=== PATIENT | female | born 1985 | race African-American/Black ===

== ENCOUNTER 2018-01-23 09:36 | Emergency (ER) | payer BC ==
[2018-01-23 09:51] VITALS: BP 130/91
--- NOTE | 2018-01-23 09:54 | EDM.PDOC ---
ED HPI GENERAL MEDICAL PROBLEM - General Chief Complaint: Chest Pain Stated Complaint: chest pain Time Seen by Provider: 01/23/18 09:53 Source of Information: Reports: Patient History Limitations: Reports: No Limitations - History of Present Illness INITIAL COMMENTS - FREE TEXT/NARRATIVE: 32-year-old female of -[place] descent presents to the ED with left- sided chest pain radiating up into her left shoulder down her arm for the last week. No known injuries or trauma. She states at times it hurts to breathe and she feels somewhat short of breath. She denies cough or sputum production. Denies fever or chills. She is right-hand dominant. She has been a type II diabetic 3 years. She developed gestational diabetes and currently is off medication because her glycosylated protein is so good. She is controlled therefore by diet only. At this time though she believes she may be .. Was last sometime in October of this year. Cycles usually were regular. She is 3 para 3 all 3 deliveries by . At this time is 2:15. Blood pressure is 1 4100. She is mildly anxious. She locally localizes the pain to the high left anterior chest adjacent to her shoulder. Onset: Gradual Onset Date: 01/17/18 Duration: Week(s): (Left chest pain for the better part of a week.) Location: Reports: Chest (Left upper anterior chest.) Quality: Reports: Ache, Pressure Severity: Moderate Improves with: Reports: None Worsens with: Reports: None Context: Reports: Other (Spontaneous occurrence.). Denies: Activity, Exercise, Lifting, Sick Contact, Trauma Associated Symptoms: Reports: Chest Pain, Malaise. 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 No miscarriages.) Endocrine/Metabolic History: Reports: Diabetes, Type II (Type II diabetic. Diagnosed with gestational diabetes with first . She's been on and off metformin for a period of time. Currently not on metformin. Diet controlled only since her glycosylated protein was so good.) - Past Surgical History Female Surgical History: Reports: Section (3.) Social & Family History - Living Situation & Occupation Living situation: Reports: Occupation: Employed (At [employer].) ED ROS GENERAL - Review of Systems Review Of Systems: See Below Constitutional: Reports: Malaise, Fatigue. Denies: Fever, Chills, Weakness, Decreased Appetite, Weight Loss HEENT: Reports: No Symptoms Respiratory: Reports: Shortness of Breath Cardiovascular: Reports: Chest Pain. Denies: Blood Pressure Problem (See history of present illness), Claudication, Dyspnea on Exertion, Edema, Lightheadedness, Orthopnea, Palpitations Endocrine: Reports: Fatigue GI/Abdominal: Reports: No Symptoms : Reports: Frequency, Other (Last normal menstrual period was sometime in October. She is concerned she may well be .) Musculoskeletal: Reports: Back Pain Skin: Reports: No Symptoms Neurological: Reports: No Symptoms Psychiatric: Reports: No Symptoms Hematologic/Lymphatic: Reports: No Symptoms ED EXAM, GENERAL - Physical Exam Exam: See Below Exam Limited By: No Limitations General Appearance: Alert, WD/WN, No Apparent Distress, Other (Vital signs are normal with BP 130/91. Respiratory rate 21. Pulse ox 99% on room air.) Eye Exam: Bilateral Eye: Normal Inspection Head: Atraumatic, Normocephalic Neck: Normal Inspection, Supple, Non-Tender, Full Range of Motion. No: Carotid Bruit, Lymphadenopathy (L), Lymphadenopathy (R), Thyromegaly Respiratory/Chest: No Respiratory Distress, Lungs Clear, Normal Breath Sounds, No Accessory Muscle Use, Other (Chest pain elicited on palpation of ribs 234 and 5. Query the fourth and fifth ribs at the anterior axillary line and mid clavicular line.) Cardiovascular: Normal Peripheral Pulses, Regular Rate, Rhythm, No Edema, No Gallop, No Murmur Peripheral Pulses: 3+: Posterior Tibial (L), Posterior Tibial (R), Dorsalis Pedis (L), Dorsalis Pedis (R) GI/Abdominal: Normal Bowel Sounds, Soft, Non-Tender, No Organomegaly, No Distention, No Abnormal Bruit, No Mass, Pelvis Stable Back Exam: Normal Inspection, Full Range of Motion. No: CVA Tenderness (L), CVA Tenderness (R) Extremities: Normal Inspection, Normal Range of Motion, No Pedal Edema, Other ( On inspection or palpation of the left upper extremity reveals pain throughout the supraspinatus tendon superior aspect of the shoulder. There also is quite marked tenderness on palpation of the short head of biceps at its insertion into the shoulder and coracoid process. Deltoid tendon insertion site appears normal. She has good distal pulses to her left wrist.) Neurological: Alert, Oriented, CN II-XII Intact, Normal Cognition Psychiatric: Normal Affect, Normal Mood Skin Exam: Warm, Dry, Intact, Normal Color, No Rash EKG INTERPRETATION EKG Date: 01/23/18 Time: 09:45 Rhythm: NSR Rate (Beats/Min): 72 (There are multifocal PVCs in a trigeminal pattern. Patient is not aware of irregular heartbeat.) [place]: Normal P-Wave: Present ST-T: Normal QT: Prolonged EKG Interpretation Comments: Abnormal ECG. Course - Vital Signs Last Recorded V/S: Last Vital Signs Temp 36.8 C 01/23/18 09:40 Pulse 75 01/23/18 09:40 Resp 21 H 01/23/18 09:40 BP 130/91 H 01/23/18 09:40 Pulse Ox 99 01/23/18 09:40 - Orders/Labs/Meds Orders: Active Orders 24 hr Category Date Time Status EKG 12 Lead [EKG Documentation Completion] [RC] STAT Care 01/23/18 09:35 Active URINALYSIS W/MICROSCOPIC [UA W/MICROSCOPIC] [URIN] Stat Lab 01/23/18 10:20 Ordered Labs: Laboratory Tests 01/23/18 01/23/18 01/23/18 Range/Units 09:45 09:45 09:45 WBC 8.00 (3.98-10.04) K/mm3 RBC 5.21 (3.98-5.22) M/mm3 Hgb 13.5 (11.2-15.7) gm/L Hct 39.6 (34.1-44.9) % MCV 76.0 L (79.4-94.8) fl MCH 25.9 (25.6-32.2) pg MCHC 34.1 (32.2-35.5) g/dl RDW Std Deviation 41.4 (36.4-46.3) fL Plt Count 193 (182-369) K/mm3 MPV 11.4 (9.4-12.3) fl Neutrophils % (Manual) 64 H (40-60) % Band Neutrophils % 1 (0-10) % Lymphocytes % (Manual) 28 (20-40) % Atypical Lymphs % 0 % Monocytes % (Manual) 5 (2-10) % Eosinophils % (Manual) 1 (0.7-5.8) % Basophils % (Manual) 1 (0.1-1.2) Platelet Estimate Adequate Hypochromasia 1+ slight Anisocytosis 1+ slight Microcytosis 1+ slight RBC Morph Comment Not Reportable Sodium 134 L (136-145) mEq/L Potassium 3.8 (3.5-5.1) mEq/L Chloride 101 (98-107) mEq/L Carbon Dioxide 22 (21-32) mEq/L Anion Gap 14.8 (5-15) BUN 8 (7-18) mg/dL Creatinine 0.7 (0.55-1.02) mg/dL Est Cr Clr Drug Dosing 91.25 mL/min Estimated GFR (MDRD) > 60 (>60) mL/min BUN/Creatinine Ratio 11.4 L (14-18) Glucose 219 H (74-106) mg/dL Hemoglobin A1c (4.50-6.20) % Calcium 9.1 (8.5-10.1) mg/dL Magnesium 1.4 L (1.8-2.4) mg/dl Total Bilirubin 0.3 (0.2-1.0) mg/dL AST 14 L (15-37) U/L ALT 20 (14-59) U/L Alkaline Phosphatase 45 L (46-116) U/L Troponin I (0.00-0.056) ng/mL NT-Pro-B Natriuret Pep 21 (0-125) pg/mL Total Protein 7.5 (6.4-8.2) g/dl Albumin 3.3 L (3.4-5.0) g/dl Globulin 4.2 gm/dL Albumin/Globulin Ratio 0.8 L (1-2) TSH 3rd Generation 1.208 (0.358-3.74) uIU/mL HCG, Qual Positive H (NEGATIVE) HCG, Quant mIU/mL Urine Color (Yellow) Urine Appearance (Clear) Urine pH (5.0-8.0) Ur Specific [place] (1.005-1.030) Urine Protein (Negative) Urine Glucose (UA) (Negative) Urine Ketones (Negative) Urine Occult Blood (Negative) Urine Nitrite (Negative) Urine Bilirubin (Negative) Urine Urobilinogen (0.2-1.0) Ur Leukocyte Esterase (Negative) Urine RBC (0-5) /hpf Urine WBC (0-5) /hpf Ur Epithelial Cells (0-5) /hpf Urine Bacteria (FEW) /hpf Urine Mucus (FEW) /hpf 01/23/18 01/23/18 01/23/18 Range/Units 09:45 09:45 09:45 WBC (3.98-10.04) K/mm3 RBC (3.98-5.22) M/mm3 Hgb (11.2-15.7) gm/L Hct (34.1-44.9) % MCV (79.4-94.8) fl MCH (25.6-32.2) pg MCHC (32.2-35.5) g/dl RDW Std Deviation (36.4-46.3) fL Plt Count (182-369) K/mm3 MPV (9.4-12.3) fl Neutrophils % (Manual) (40-60) % Band Neutrophils % (0-10) % Lymphocytes % (Manual) (20-40) % Atypical Lymphs % % Monocytes % (Manual) (2-10) % Eosinophils % (Manual) (0.7-5.8) % Basophils % (Manual) (0.1-1.2) Platelet Estimate Hypochromasia Anisocytosis Microcytosis RBC Morph Comment Sodium (136-145) mEq/L Potassium (3.5-5.1) mEq/L Chloride (98-107) mEq/L Carbon Dioxide (21-32) mEq/L Anion Gap (5-15) BUN (7-18) mg/dL Creatinine (0.55-1.02) mg/dL Est Cr Clr Drug Dosing mL/min Estimated GFR (MDRD) (>60) mL/min BUN/Creatinine Ratio (14-18) Glucose (74-106) mg/dL Hemoglobin A1c 7.90 H (4.50-6.20) % Calcium (8.5-10.1) mg/dL Magnesium (1.8-2.4) mg/dl Total Bilirubin (0.2-1.0) mg/dL AST (15-37) U/L ALT (14-59) U/L Alkaline Phosphatase (46-116) U/L Troponin I < 0.017 (0.00-0.056) ng/mL NT-Pro-B Natriuret Pep (0-125) pg/mL Total Protein (6.4-8.2) g/dl Albumin (3.4-5.0) g/dl Globulin gm/dL Albumin/Globulin Ratio (1-2) TSH 3rd Generation (0.358-3.74) uIU/mL HCG, Qual (NEGATIVE) HCG, Quant 133777.0 mIU/mL Urine Color (Yellow) Urine Appearance (Clear) Urine pH (5.0-8.0) Ur Specific [place] (1.005-1.030) Urine Protein (Negative) Urine Glucose (UA) (Negative) Urine Ketones (Negative) Urine Occult Blood (Negative) Urine Nitrite (Negative) Urine Bilirubin (Negative) Urine Urobilinogen (0.2-1.0) Ur Leukocyte Esterase (Negative) Urine RBC (0-5) /hpf Urine WBC (0-5) /hpf Ur Epithelial Cells (0-5) /hpf Urine Bacteria (FEW) /hpf Urine Mucus (FEW) /hpf 01/23/18 Range/Units 10:20 WBC (3.98-10.04) K/mm3 RBC (3.98-5.22) M/mm3 Hgb (11.2-15.7) gm/L Hct (34.1-44.9) % MCV (79.4-94.8) fl MCH (25.6-32.2) pg MCHC (32.2-35.5) g/dl RDW Std Deviation (36.4-46.3) fL Plt Count (182-369) K/mm3 MPV (9.4-12.3) fl Neutrophils % (Manual) (40-60) % Band Neutrophils % (0-10) % Lymphocytes % (Manual) (20-40) % Atypical Lymphs % % Monocytes % (Manual) (2-10) % Eosinophils % (Manual) (0.7-5.8) % Basophils % (Manual) (0.1-1.2) Platelet Estimate Hypochromasia Anisocytosis Microcytosis RBC Morph Comment Sodium (136-145) mEq/L Potassium (3.5-5.1) mEq/L Chloride (98-107) mEq/L Carbon Dioxide (21-32) mEq/L Anion Gap (5-15) BUN (7-18) mg/dL Creatinine (0.55-1.02) mg/dL Est Cr Clr Drug Dosing mL/min Estimated GFR (MDRD) (>60) mL/min BUN/Creatinine Ratio (14-18) Glucose (74-106) mg/dL Hemoglobin A1c (4.50-6.20) % Calcium (8.5-10.1) mg/dL Magnesium (1.8-2.4) mg/dl Total Bilirubin (0.2-1.0) mg/dL AST (15-37) U/L ALT (14-59) U/L Alkaline Phosphatase (46-116) U/L Troponin I (0.00-0.056) ng/mL NT-Pro-B Natriuret Pep (0-125) pg/mL Total Protein (6.4-8.2) g/dl Albumin (3.4-5.0) g/dl Globulin gm/dL Albumin/Globulin Ratio (1-2) TSH 3rd Generation (0.358-3.74) uIU/mL HCG, Qual (NEGATIVE) HCG, Quant mIU/mL Urine Color Light yellow (Yellow) Urine Appearance Clear (Clear) Urine pH 7.0 (5.0-8.0) Ur Specific [place] 1.015 (1.005-1.030) Urine Protein Negative (Negative) Urine Glucose (UA) 2+ H (Negative) Urine Ketones Negative (Negative) Urine Occult Blood 1+ H (Negative) Urine Nitrite Negative (Negative) Urine Bilirubin Negative (Negative) Urine Urobilinogen 0.2 (0.2-1.0) Ur Leukocyte Esterase Trace H (Negative) Urine RBC 0-5 (0-5) /hpf Urine WBC 0-5 (0-5) /hpf Ur Epithelial Cells 0-5 (0-5) /hpf Urine Bacteria Few (FEW) /hpf Urine Mucus Not seen (FEW) /hpf - Radiology Interpretation Free Text/Narrative:: 32-year-old female of [place] descent presents to the ED with left upper anterior shoulder and chest pain. Pain radiates down the anterior lateral aspect of her arm. It's been present for about a week. Associated dyspnea last night. States the pain kept her awake last evening. No associated fever chills nausea vomiting or cough. At this time she believes she may well be as well. Examination reveals normal lung [place] normal cardiac sounds. There is chest wall pain on palpation of the ribs left upper anterior chest to 3 and 4 and 5. This is worse in the left axillary anterior axillary line. So pain throughout the distribution of the supraspinatus tendon and also short head of biceps tendon anterior shoulder. Pain appears to be [place] skeletal in origin. Plan routine labs including a glycosylated protein to be done. This will include a serum magnesium and troponin and TSH. Will hold off on chest x-ray until we know for sure she is or not. - Re-Assessments/Exams Free Text/Narrative Re-Assessment/Exam: 01/23/18 10:52 Labs are starting to come back. White count is 8.0 differential pending. Hemoglobin is good at 13.5 with hematocrit of 39.6. Note MCV is low at 76.0 suggesting iron deficiency. Platelet count is normal 193,000. Sodium slightly low at 134. Potassium normal 3.8. Chloride 11 with a bicarbonate of 22. Anion gap is 14.8. BUN is 8 with a creatinine of 0.7. GFR is greater than 60. Glucose is currently 219. Hemoglobin A1c is 7.90. Calcium is 9.1. Magnesium is low at 1.4. Total bilirubin is 0.3. Remainder the liver function is normal. Troponin I is less than 0.017. BNP is normal at 21. TSH is normal at 1.20. 8 ECG serum is positive. Plan will be to order a serum quantitative beta-hCG. Urinalysis shows 2+ glucose 1+ occult blood. Trace leukocyte esterase but 0-5 [address] [facility]. 01/23/18 11:07 White blood cell differential 64% neutrophils 1 band cell reported. 01/23/18 12:50 Quantitative beta-hCG just returned elevated at 129,000/497. This would correlate with a late first trimester which would correlate with her dates. She's not certain of her last normal menstrual period date in October. She will follow-up in the next week to 10 days. Departure - Departure Time of Disposition: 12:20 Disposition: Home, Self-Care 01 Condition: Fair Clinical Impression: Non-cardiac chest pain, Chest wall pain, Bicipital tendinitis of left shoulder , First trimester Prescriptions: metFORMIN [Glucophage XR] 500 mg PO BIDMEALS #60 tab.er Instructions: Nonspecific Chest Pain, Pwur-ib-Carn Referrals: Annalise Mata MD [Primary Care Provider] - Forms: ED Department Discharge Additional Instructions: Evaluation the emergency room today in regards to left upper anterior chest pain. Clinically this appears to be chest wall pain. It is localized to particularly the third fourth and fifth ribs anterior axillary line and then significant pain at the insertion of the biceps tendon and pain along the supraspinatus muscle and tendon of the upper shoulder. Chest pain is chest wall in origin or musculoskeletal in origin. Treatment is hot packs to the area as needed. Tylenol for pain relief due to first trimester . She is confirmed in the ED. The exact dates of half hour long you are aren't not yet available. Glycosylated hemoglobin was 7.9. Markers for heart attack and other problems with the lungs were normal. You are mildly anemic and you should start a vitamin containing iron at this time. Suggest starting metformin 500 mg twice daily for diabetes control in . Encourage you to follow-up with [facility] physician within the next week to 10 days as you are higher risk due to having gestational diabetes. - My Orders Last 24 Hours: My Active Orders 01/23/18 09:35 EKG 12 Lead [EKG Documentation Completion] [RC] STAT 01/23/18 10:20 URINALYSIS W/MICROSCOPIC [UA W/MICROSCOPIC] [URIN] Stat - Assessment/Plan Last 24 Hours: My Active Orders 01/23/18 09:35 EKG 12 Lead [EKG Documentation Completion] [RC] STAT 01/23/18 10:20 URINALYSIS W/MICROSCOPIC [UA W/MICROSCOPIC] [URIN] Stat
== END 2018-01-23 12:21 | disposition home or self-care (01) ==
LOC: JD.ED 09:36
DX: O99.89 Other specified diseases and conditions complicating pregnancy, childbirth and the puerperium (principal); R07.89 Other chest pain; M75.22 Bicipital tendinitis, left shoulder; O24.311 Unspecified pre-existing diabetes mellitus in pregnancy, first trimester; E11.9 Type 2 diabetes mellitus without complications; Z79.84 Long term (current) use of oral hypoglycemic drugs
CPT/HCPCS: 36415; 80053; 81001; 82962; 83036; 83735; 83880; 84443; 84484; 84702; 84703; 85007; 85027; 93005; 99285-25

== ENCOUNTER 2018-07-25 05:36 | Inpatient (IN) | payer BC ==
[~2018-07-25 05:36] MED LIST: Oxytocin/Lactated Ringers 10 UNIT/1,000 ML BAG IV SCH; Sodium Chloride 0.9% 10 ML Syringe FLUSH PRN
[2018-07-25] MEDS ORDERED: Metoclopramide 10 MG/2 ML SDV IVPUSH ONE (06:00)
[2018-07-25] MEDS ORDERED: Citric Acid/Sodium Citrate Solution 30 ML Cup PO ONE (06:00)
[2018-07-25] MEDS ORDERED: ceFAZolin/Dextrose,Iso-Osmotic 2 GM/50 ML Duplex Bag IV ONE (06:22)
[2018-07-25] MEDS: Lactated Ringers 1,000 ML IV SCH ×2 (06:40→07:13)
[2018-07-25] MEDS ORDERED: ceFAZolin 2 GM in Premix Bag 1 BAG IV ONE (07:00)
--- NOTE | 2018-07-25 07:07 | PCM.OPNOTE ---
- General Post-Op/Procedure Note Date of Surgery/Procedure: 07/25/18 Operative Procedure(s): Repeat low transverse . Bilateral salpingectomy Findings: Moderate amount of scar tissue between the facia and the rectus. Moderate adhesive disease between the bladder and the lower uterine segment. Thin lower uterine segment. Gross evidence of polyhydramnios. Baby boy in vertex presentation with weight of 7 lbs 14 oz, APGARS of 6 & 8. Normal appearance of the uterus, fallopian tubes, and ovaries bilaterally. Pre Op Diagnosis: 38 3/7 wks gestation. Type 2 DM. Polyhydramnios. 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 Speed/safety of procedure. Pathology: Cord blood collected. Placenta discarded. Fluid Replacement, Intraop: 1,800 Output, Urine Amount: 75 EBL in mLs: 700 Complications: None Condition: Good Free Text/Narrative:: The risks, benefits, indications, potential complications, and alternatives were explained to the patient and informed consent obtained. After induction of anesthesia, the patient was placed in a supine position and then draped and prepped in the usual sterile manner. A Pfannenstiel incision was made and carried down through the subcutaneous tissue to the fascia. Fascial incision was made and extended transversely. The fascia was from the underlying rectus tissue superiorly and inferiorly. The peritoneum was identified and entered. Peritoneal incision was extended longitudinally. The utero-vesical peritoneal reflection was incised transversely and the bladder flap was bluntly freed from the lower uterine segment with care to take down adhesions. A low transverse uterine incision was made sharply with a scalpel and extended bluntly in a cephalocaudad direction. A baby boy was delivered from a vertex presentation with APGARS as above. After the umbilical cord was clamped and cut cord blood was obtained for evaluation. The placenta was removed intact and appeared normal. The uterus was exteriorized and cleared of clots. The uterine outline, tubes and ovaries appeared normal. The uterine incision was closed with running locked sutures of 0 Vicryl. Hemostasis was obtained with a second imbricating layer of 0 vicryl. Attention was then turned to performing a bilateral salpingectomy. The right fallopian tube was grasped with a [place] clamp and elevated. The LigaSure device was used to cauterize and transect the mesosalpinx from the fimbriated end of the tube towards the uterine cornua. The LigaSure was then used to cauterize and transect the tube. The same procedure was carried out on the patient's left. The uterus was then placed back into the abdomen. The infracolic gutters were cleared of blood clots. Sites of salpingectomy and hysterotomy were confirmed to be hemostatic. The fascia was then reapproximated with running sutures of 1 PDS. The sucutaneous tissue was irrigated with sterile warm normal saline, hemostasis obtained with cautery. This layer was closed with a running 0 vicryl suture. The skin was reapproximated with running Subcuticular 4-0 monocryl sutures. Instrument, sponge, and needle counts were correct prior the abdominal closure and at the conclusion of the case.
[2018-07-25] MEDS ORDERED: ceFAZolin 1 GM Vial ONE (07:14)
[2018-07-25] MEDS ORDERED: Morphine 10 MG/ML Syringe ONE (07:14)
[2018-07-25] MEDS ORDERED: Oxytocin 10 Units/1 ML SDV ONE (07:15)
[2018-07-25] MEDS ORDERED: Ondansetron 4 MG/2 ML SDV ONE (07:16)
[2018-07-25] MEDS ORDERED: Morphine PF 1 MG/ML Amp ONE (07:27)
--- NOTE | 2018-07-25 07:38 | PCM.PREANE ---
Preanesthetic Assessment - Procedure Proposed Procedure: Repeat C/S - Anesthesia/Transfusion/Family Hx Anesthesia History: Prior Anesthesia Without Reaction Family History of Anesthesia Reaction: No Transfusion History: No Prior Transfusion(s) Intubation History: Unknown - Review of Systems General: No Symptoms Pulmonary: No Symptoms Cardiovascular: No Symptoms Gastrointestinal: No Symptoms Neurological: No Symptoms Other: Reports: Diabetes - Physical Assessment NPO Status Date: 07/24/18 NPO Status Time: 21:00 Pulse: 92 O2 Sat by Pulse Oximetry: 99 Respiratory Rate: 18 Blood Pressure: 118/73 Temperature: 37.3 C Vital Signs: Last Vital Signs Temp 37.3 C 07/25/18 05:56 Pulse 92 07/25/18 05:56 Resp 18 07/25/18 05:56 BP 118/73 07/25/18 05:56 Pulse Ox 99 07/25/18 05:56 Height: 1.52 m Weight: 94.302 kg ASA Class: 2 Mental Status: Alert & Oriented x3 Airway Class: Mallampati = 3 Dentition: Reports: Normal Dentition ROM/Head Extension: Full Lungs: Clear to Auscultation, Normal Respiratory Effort Cardiovascular: Regular Rate, Regular Rhythm - Lab Values: Laboratory Last Values WBC 8.60 K/mm3 (3.98-10.04) 07/25/18 06:08 RBC 4.93 M/mm3 (3.98-5.22) 07/25/18 06:08 Hgb 12.3 gm/L (11.2-15.7) 07/25/18 06:08 Hct 37.7 % (34.1-44.9) 07/25/18 06:08 MCV 76.5 fl (79.4-94.8) L 07/25/18 06:08 MCH 24.9 pg (25.6-32.2) L 07/25/18 06:08 MCHC 32.6 g/dl (32.2-35.5) 07/25/18 06:08 RDW Std Deviation 44.1 fL (36.4-46.3) 07/25/18 06:08 Plt Count 172 K/mm3 (182-369) L 07/25/18 06:08 Neut % (Auto) 58.2 % (34.0-71.1) 07/25/18 06:08 Lymph % (Auto) 27.7 % (19.3-51.7) 07/25/18 06:08 [place] % (Auto) 9.9 % (4.7-12.5) 07/25/18 06:08 Eos % (Auto) 3.7 (0.7-5.8) 07/25/18 06:08 Baso % (Auto) 0.2 % (0.1-1.2) 07/25/18 06:08 Neut # (Auto) 5.00 K/mm3 (1.56-6.13) 07/25/18 06:08 Lymph # (Auto) 2.38 K/mm3 (1.18-3.74) 07/25/18 06:08 [place] # (Auto) 0.85 K/mm3 (0.24-0.36) H 07/25/18 06:08 Eos # (Auto) 0.32 K/mm3 (0.04-0.36) 07/25/18 06:08 Baso # (Auto) 0.02 K/mm3 (0.01-0.08) 07/25/18 06:08 POC Glucose 79 mg/dL (70-105) 07/25/18 06:12 Urine Color Yellow (Yellow) 07/25/18 05:55 Urine Appearance Clear (Clear) 07/25/18 05:55 Urine pH 6.5 (5.0-8.0) 07/25/18 05:55 Ur Specific [place] 1.015 (1.005-1.030) 07/25/18 05:55 Urine Protein Negative (Negative) 07/25/18 05:55 Urine Glucose (UA) Negative (Negative) 07/25/18 05:55 Urine Ketones Trace (Negative) H 07/25/18 05:55 Urine Occult Blood Negative (Negative) 07/25/18 05:55 Urine Nitrite Negative (Negative) 07/25/18 05:55 Urine Bilirubin Negative (Negative) 07/25/18 05:55 Urine Urobilinogen 0.2 (0.2-1.0) 07/25/18 05:55 Ur Leukocyte Esterase Negative (Negative) 07/25/18 05:55 Urine Opiates Screen Negative (NEGATIVE) 07/25/18 05:55 Ur Buprenorphine Scrn Negative (NEGATIVE) 07/25/18 05:55 Ur Oxycodone Screen Negative (NEGATIVE) 07/25/18 05:55 Urine Methadone Screen Negative (NEGATIVE) 07/25/18 05:55 Ur Propoxyphene Screen Negative (NEGATIVE) 07/25/18 05:55 Ur Barbiturates Screen Negative (NEGATIVE) 07/25/18 05:55 Ur Tricyclics Screen Negative (NEGATIVE) 07/25/18 05:55 Ur Phencyclidine Scrn Negative (NEGATIVE) 07/25/18 05:55 Ur Amphetamine Screen Negative (NEGATIVE) 07/25/18 05:55 U Methamphetamines Scrn Negative (NEGATIVE) 07/25/18 05:55 U Benzodiazepines Scrn Negative (NEGATIVE) 07/25/18 05:55 U Cocaine Metab Screen Negative (NEGATIVE) 07/25/18 05:55 U Marijuana (THC) Screen Negative (NEGATIVE) 07/25/18 05:55 Blood Type B POSITIVE 07/25/18 06:08 Gel Antibody Screen Negative 07/25/18 06:08 - Allergies Allergies/Adverse Reactions: Allergies Allergy/AdvReac Type Severity Reaction Status Date / Time No Known Allergies Allergy Verified 07/24/18 21:46 - Blood Blood Available: No - Anesthesia Plan Pre-Op Medication Ordered: None - Acknowledgements Anesthesia Type Planned: Spinal Pt an Appropriate Candidate for the Planned Anesthesia: Yes Alternatives and Risks of Anesthesia Discussed w Pt/Guardian: Yes Pt/Guardian Understands and Agrees with Anesthesia Plan: Yes PreAnesthesia Questionnaire - Past Health History Medical/Surgical History: Denies Medical/Surgical History 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: : 4 Para: 3 Musculoskeletal History: Reports: Back Pain, Chronic (with ) Endocrine/Metabolic History: Reports: Diabetes, Type II, Obesity/BMI 30+ - Past Surgical History Female Surgical History: Reports: Section - SUBSTANCE USE Smoking Status *Q: Never Smoker Recreational Drug Use History: No - HOME MEDS Home Medications: Home Meds Cyclobenzaprine [Flexeril] 5 mg PO TID PRN 07/24/18 [History] Insulin Detemir [Levemir Flextouch] 100 unit SQ DAILY 07/24/18 [History] Insulin Lispro [Humalog] 100 unit SQ TID 07/24/18 [History] Pnv No.122/Iron/Folic Acid [ Multi Tablet] 1 each PO DAILY 07/24/18 [ History] - CURRENT (IN HOUSE) MEDS Current Meds: Current Medications Lactated Ringer's (Ringers, Lactated) 1,000 mls @ 125 mls/hr IV ASDIRECTED MEGAN Last Admin: 07/25/18 07:13 Dose: 125 mls/hr Oxytocin/Lactated Ringer's (Pitocin In Lr 10 Units/1,000 Ml) 10 unit in 1,000 mls @ 100 mls/hr IV ASDIRECTED MEGAN Sodium Chloride (Saline Flush) 10 ml FLUSH ASDIRECTED PRN PRN Reason: Keep Vein Open Discontinued Medications Cefazolin Sodium (Ancef) Confirm Administered Dose 2 gm .ROUTE .STK-MED ONE Stop: 07/25/18 07:15 Cefazolin Sodium/Dextrose (Ancef) Confirm Administered Dose 2 gm IV .STK-MED ONE Stop: 07/25/18 06:23 Citric Acid/Sodium Citrate (Bicitra Solution) 30 ml PO ONETIME ONE Stop: 07/25/18 06:01 Last Admin: 07/25/18 07:14 Dose: 30 ml Cefazolin Sodium/Dextrose 2 gm (/ Premix) 50 mls @ 100 mls/hr IV ONETIME ONE Stop: 07/25/18 07:29 Last Admin: 07/25/18 07:28 Dose: 100 mls/hr Metoclopramide HCl (Reglan) 10 mg IVPUSH ONETIME ONE Stop: 07/25/18 06:01 Last Admin: 07/25/18 07:14 Dose: 10 mg Morphine Sulfate (Morphine) Confirm Administered Dose 10 mg .ROUTE .STK-MED ONE Stop: 07/25/18 07:15 Morphine Sulfate (Duramorph Pf) Confirm Administered Dose 1 mg .ROUTE .STK-MED ONE Stop: 07/25/18 07:28 Ondansetron HCl (Zofran) Confirm Administered Dose 4 mg .ROUTE .STK-MED ONE Stop: 07/25/18 07:17 Oxytocin (Pitocin) Confirm Administered Dose 20 unit .ROUTE .STK-MED ONE Stop: 07/25/18 07:16
[2018-07-25] MEDS ORDERED: Misoprostol 200 MCG Tab ONE (07:52)
[2018-07-25] MEDS ORDERED: Ketorolac 30 MG/ML SDV ONE (08:17)
[2018-07-25] MEDS ORDERED: Lactated Ringers 1,000 ML ONE ×2 (08:26)
[2018-07-25] MEDS ORDERED: Phenylephrine/Normal Saline 100 MCG/ML 10 ML Syringe ONE ×2 (08:39)
--- NOTE | 2018-07-25 09:15 | PCM.POSTAN ---
POST ANESTHESIA ASSESSMENT - MENTAL STATUS Mental Status: Other (drowsy ) - VITAL SIGNS Pulse Rate: 92 SaO2: 95 Resp Rate: 18 Blood Pressure: 94/63 Temperature: 36.6 C - RESPIRATORY Respiratory Status: Respiratory Rate WNL, Airway Patent, O2 Saturation Stable - CARDIOVASCULAR CV Status: Pulse Rate WNL, Blood Pressure Stable - GASTROINTESTINAL GI Status: No Symptoms - PAIN Pain Score: 0 - POST OP HYDRATION Hydration Status: Adequate & Stable
[2018-07-25] MEDS ORDERED: Ondansetron 4 MG/2 ML SDV IVPUSH PRN (09:16)
[2018-07-25] MEDS ORDERED: diphenhydrAMINE 50 MG/ML SDV IVPUSH PRN ×2 (09:16→09:41)
[2018-07-25] MEDS ORDERED: Dextrose 5%-Lactated Ringers 1,000 ML IV SCH (09:41)
[2018-07-25] MEDS ORDERED: Naloxone 0.4 MG/ML SDV IVPUSH PRN (09:41)
[2018-07-25] MEDS ORDERED: ePHEDrine 50 MG/ML SDV IVPUSH PRN (09:41)
[2018-07-25] MEDS ORDERED: Lanolin 100% Cream 7 GM Tube TOP PRN (09:41)
[2018-07-25] MEDS: Ketorolac 30 MG/ML SDV IVPUSH SCH ×2 (15:56→21:35)
[2018-07-25] MEDS: Insulin Lispro 100 Unit/ML 3 ML KwikPen SUBCUT SCH (18:35)
[2018-07-25] MEDS ORDERED: Insulin Isophane NPH, Human 100 Units/ML 10 ML Vial SUBCUT SCH (21:00)
[2018-07-26] MEDS: Insulin Lispro 100 Unit/ML 3 ML KwikPen SUBCUT SCH ×3 (00:17→15:06)
[2018-07-26] MEDS: Ketorolac 30 MG/ML SDV IVPUSH SCH (03:44)
--- NOTE | 2018-07-26 07:09 | PCM.PNPP ---
- General Info Date of Service: 07/26/18 Functional Status: Reports: Pain Controlled, Tolerating Diet, Ambulating - Review of Systems General: Reports: No Symptoms Pulmonary: Reports: No Symptoms Cardiovascular: Reports: No Symptoms Gastrointestinal: Reports: Abdominal Pain (manageable ) Genitourinary: Reports: No Symptoms Musculoskeletal: Reports: No Symptoms Neurological: Reports: No Symptoms - Patient Data Vital Signs - Most Recent: Last Vital Signs Temp 37.3 C 07/26/18 04:00 Pulse 80 07/26/18 04:00 Resp 16 07/26/18 04:00 BP 112/72 07/26/18 04:00 Pulse Ox 95 07/26/18 04:00 Weight - Most Recent: 94.302 kg I&O - Last 24 Hours: Intake & Output 07/25/18 07/26/18 07/26/18 22:59 06:59 14:59 Intake Total 180 Output Total 1850 2500 Balance -1670 -2500 Lab Results - Last 24 Hours: Laboratory Results - last 24 hr 07/25/18 07/25/18 07/25/18 Range/Units 06:08 06:08 06:45 WBC (3.98-10.04) K/mm3 RBC (3.98-5.22) M/mm3 Hgb (11.2-15.7) gm/L Hct (34.1-44.9) % MCV (79.4-94.8) fl MCH (25.6-32.2) pg MCHC (32.2-35.5) g/dl RDW Std Deviation (36.4-46.3) fL Plt Count (182-369) K/mm3 MPV (9.4-12.3) fl Manual Slide Review Abnormal smear POC Glucose (70-105) mg/dL RPR Non-reactive (NONREACTIVE) Blood Type B POSITIVE Gel Antibody Screen Negative 07/25/18 07/25/18 07/25/18 Range/Units 11:39 17:58 20:58 WBC (3.98-10.04) K/mm3 RBC (3.98-5.22) M/mm3 Hgb (11.2-15.7) gm/L Hct (34.1-44.9) % MCV (79.4-94.8) fl MCH (25.6-32.2) pg MCHC (32.2-35.5) g/dl RDW Std Deviation (36.4-46.3) fL Plt Count (182-369) K/mm3 MPV (9.4-12.3) fl Manual Slide Review POC Glucose 119 H 170 H 116 H (70-105) mg/dL RPR (NONREACTIVE) Blood Type Gel Antibody Screen 07/26/18 Range/Units 06:08 WBC 10.14 H (3.98-10.04) K/mm3 RBC 4.70 (3.98-5.22) M/mm3 Hgb 11.6 (11.2-15.7) gm/L Hct 35.6 (34.1-44.9) % MCV 75.7 L (79.4-94.8) fl MCH 24.7 L (25.6-32.2) pg MCHC 32.6 (32.2-35.5) g/dl RDW Std Deviation 43.6 (36.4-46.3) fL Plt Count 145 L (182-369) K/mm3 MPV 11.7 (9.4-12.3) fl Manual Slide Review POC Glucose (70-105) mg/dL RPR (NONREACTIVE) Blood Type Gel Antibody Screen Med Orders - Current: Current Medications Diphenhydramine HCl (Benadryl) 25 mg IVPUSH Q6H PRN PRN Reason: Itching or Nausea Emollient Ointment (Lansinoh Hpa) 0 gm TOP ASDIRECTED PRN PRN Reason: Sore Nipples Ephedrine Sulfate (Ephedrine Sulfate) 5 mg IVPUSH SEECOMMENT PRN PRN Reason: Other Ibuprofen (Motrin) 600 mg PO Q6H PRN PRN Reason: mild pain or fever Insulin Human Lispro (Humalog) 2 - 10 unit SUBCUT TID [facility]; Protocol Last Admin: 07/26/18 00:17 Dose: Not Given Insulin Human NPH (Humulin N) 10 unit SUBCUT BEDTIME [facility] Last Admin: 07/25/18 21:45 Dose: 10 units Naloxone HCl (Narcan) 0.1 mg IVPUSH SEECOMMENT PRN PRN Reason: Respiratory Depression Discontinued Medications Cefazolin Sodium (Ancef) Confirm Administered Dose 2 gm .ROUTE .STK-MED ONE Stop: 07/25/18 07:15 Cefazolin Sodium/Dextrose (Ancef) Confirm Administered Dose 2 gm IV .[facility] ONE Stop: 07/25/18 06:23 Last Admin: 07/25/18 11:08 Dose: Not Given Citric Acid/Sodium Citrate (Bicitra Solution) 30 ml PO ONETIME ONE Stop: 07/25/18 06:01 Last Admin: 07/25/18 07:14 Dose: 30 ml Diphenhydramine HCl (Benadryl) 12.5 mg IVPUSH Q6H PRN PRN Reason: pruritis Stop: 07/25/18 12:00 Cefazolin Sodium/Dextrose 2 gm (/ Premix) 50 mls @ 100 mls/hr IV ONETIME ONE Stop: 07/25/18 07:29 Last Admin: 07/25/18 07:28 Dose: 100 mls/hr Lactated Ringer's (Ringers, Lactated) 1,000 mls [facility] Last Admin: 07/25/18 07:13 Dose: 125 mls/hr Oxytocin/Lactated Ringer's (Pitocin In Lr 10 Units/1,000 Ml) 10 unit in 1,000 mls @ [facility]ls[facility] Lactated Ringer's (Ringers, Lactated) Confirm Administered Dose 1,000 mls @ as directed .ROUTE .[facility]-MED ONE Stop: 07/25/18 08:27 Lactated Ringer's (Ringers, Lactated) Confirm Administered Dose 1,000 mls @ as directed .ROUTE .[facility] ONE Stop: 07/25/18 08:27 Dextrose/Lactated Ringer's (Dextrose 5%-Lactated Ringers) 1,000 mls @ 125 mls/ hr IV ASDIRECTED [facility] Stop: 07/25/18 17:40 Last Admin: 07/25/18 13:07 Dose: 125 mls/hr Ketorolac Tromethamine (Toradol) Confirm Administered Dose 30 mg .ROUTE .[facility] MED ONE Stop: 07/25/18 08:18 Ketorolac Tromethamine (Toradol) 30 mg IVPUSH Q6H [facility] Stop: 07/26/18 03:31 Last Admin: 07/26/18 03:44 Dose: 30 mg Metoclopramide HCl (Reglan) 10 mg IVPUSH ONETIME ONE Stop: 07/25/18 06:01 Last Admin: 07/25/18 07:14 Dose: 10 mg Misoprostol (Cytotec) Confirm Administered Dose 600 mcg .ROUTE .STK-MED ONE Stop: 07/25/18 07:53 Morphine Sulfate (Morphine) Confirm Administered Dose 10 mg .ROUTE .STK-MED ONE Stop: 07/25/18 07:15 Morphine Sulfate (Duramorph Pf) Confirm Administered Dose 1 mg .ROUTE .STK-MED ONE Stop: 07/25/18 07:28 Ondansetron HCl (Zofran) Confirm Administered Dose 4 mg .ROUTE .STK-MED ONE Stop: 07/25/18 07:17 Ondansetron HCl (Zofran) 4 mg IVPUSH ONETIME PRN PRN Reason: Nausea/Vomiting Stop: 07/25/18 12:00 Oxytocin (Pitocin) Confirm Administered Dose 20 unit .ROUTE .STK-MED ONE Stop: 07/25/18 07:16 Phenylephrine HCl (Phenylephrine In Ns 100 Mcg/Ml) Confirm Administered Dose 1 mg .ROUTE .STK-MED ONE Stop: 07/25/18 08:40 Phenylephrine HCl (Phenylephrine In Ns 100 Mcg/Ml) Confirm Administered Dose 1 mg .ROUTE .STK-MED ONE Stop: 07/25/18 08:40 Sodium Chloride (Saline Flush) 10 ml FLUSH ASDIRECTED PRN PRN Reason: Keep Vein Open - Infant Interaction Disposition, : in Room with Family Infant Interaction: Holding Infant Feeding: Bottle Fed Infant Support Person: - Recovery Exam Fundal Tone: Firm Fundal Level: 1 Fingerbreadths Above Umbilicus Fundal Placement: Midline Lochia Amount: Small Lochia Color: Rubra/Red Perineum Description: Intact, Minimal Bruising/Swelling Episiotomy/Laceration: None - Exam General: Alert, Oriented, Cooperative Lungs: Clear to Auscultation, Normal Respiratory Effort Cardiovascular: Regular Rate, Regular Rhythm GI/Abdominal Exam: Soft, Non-Tender Extremities: Normal Inspection Skin: Warm, Dry, Intact Wound/Incisions: Healing Well, No Drainage - Problem List & Annotations (1) 38 weeks gestation of SNOMED Code(s): 40248468 Code(s): Z3A.38 - 38 WEEKS GESTATION OF Status: Acute Current Visit: Yes (2) Type 2 diabetes mellitus SNOMED Code(s): 71613731 Code(s): E11.9 - TYPE 2 DIABETES MELLITUS WITHOUT COMPLICATIONS Status: Acute Current Visit: Yes Qualifiers: Diabetes mellitus usp insulin use: unspecified usp insulin use status (3) Polyhydramnios SNOMED Code(s): 63398412 Code(s): O40.9XX0 - POLYHYDRAMNIOS, UNSP TRIMESTER, NOT APPLICABLE OR UNSP Status: Acute Current Visit: Yes (4) S/P repeat low transverse SNOMED Code(s): 476817790, 45153181, 587658538, 209245346, 852162543 Code(s): Z98.891 - HISTORY OF UTERINE SCAR FROM PREVIOUS SURGERY Status: Acute Current Visit: Yes - Problem List Review Problem List Initiated/Reviewed/Updated: Yes - My Orders Last 24 Hours: My Active Orders 07/25/18 09:41 Activity as Tolerated [RC] .Routine Communication Order [RC] PER UNIT ROUTINE Intake and Output [RC] Q4H May Shower [RC] PER UNIT ROUTINE Notify Provider Intake and Out [RC] ASDIRECTED RT Incentive Spirometry [RC] Q2HWA Lanolin [Lansinoh HPA] See Dose Instructions TOP ASDIRECTED PRN Naloxone [Narcan] 0.1 mg IVPUSH SEECOMMENT PRN diphenhydrAMINE [Benadryl] 25 mg IVPUSH Q6H PRN ePHEDrine [ePHEDrine sulfate] 5 mg IVPUSH SEECOMMENT PRN Assess Lochia [WOMSER] Per Unit Routine Assess Uterine Involution [WOMSER] Per Unit Routine Breast Pump [WOMSER] Per Unit Routine Heat Therapy [OM.PC] Per Unit Routine Peripheral IV Discontinue [OM.PC] Routine Sequential Compression Device [OM.PC] Per Unit Routine 07/25/18 09:51 Blood Glucose Check, Bedside [RC] TIDAC 07/25/18 17:00 Insulin Lispro [HumaLOG] 2 - 10 unit SUBCUT TID 07/25/18 21:00 Insulin Isophane NPH, Human [HumuLIN N] 10 unit SUBCUT BEDTIME 07/25/18 Lunch Regular Diet [DIET] 07/26/18 09:04 Urinary Catheter Removal [RC] Per Unit Routine 07/26/18 09:30 Ibuprofen [Motrin] 600 mg PO Q6H PRN - Assessment Assessment:: 33 y/o G4 now P4004 POD#1 from RLTCS and bilateral salpingectomy - Plan Plan:: S/p RLTCS * Routine cares * Bottle feeding * Patient's home insulin regimen was Levemir 14 units QHS and Humalog . Do not carry her home insulin in hospital. Started NPH of 10 last night. Has SSI with meals. Plans to transition to oral medications after discharge. * Discharge home in 1-2 days
[2018-07-26] MEDS: Ibuprofen 600 MG Tab PO PRN ×2 (09:20→22:50)
[2018-07-26] MEDS: Acetaminophen/oxyCODONE 325-5 MG Tab PO PRN ×2 (14:08→19:50)
[2018-07-26] MEDS ORDERED: Magnesium Hydroxide 400 MG/5 ML Susp 30 ML Cup PO PRN (20:17)
[2018-07-26] MEDS ORDERED: Insulin Glarg,Human.Rec.Analog 100 UNIT/ML ML SUBCUT STA (21:42)
[2018-07-27] MEDS: Acetaminophen/oxyCODONE 325-5 MG Tab PO PRN ×2 (06:14→10:21)
--- NOTE | 2018-07-27 08:01 | PCM.PNPP ---
- General Info Date of Service: 07/27/18 Functional Status: Reports: Pain Controlled, Tolerating Diet, Ambulating, Urinating - Review of Systems General: Reports: No Symptoms Pulmonary: Reports: No Symptoms Cardiovascular: Reports: No Symptoms Gastrointestinal: Reports: Abdominal Pain (managed with medications ) Genitourinary: Reports: No Symptoms Musculoskeletal: Reports: No Symptoms - Patient Data Vital Signs - Most Recent: Last Vital Signs Temp 37.2 C 07/27/18 03:00 Pulse 78 07/27/18 03:00 Resp 16 07/27/18 03:00 BP 125/78 07/27/18 03:00 Pulse Ox 97 07/27/18 03:00 Weight - Most Recent: 94.302 kg I&O - Last 24 Hours: Intake & Output 07/26/18 07/27/18 07/27/18 22:59 06:59 14:59 Intake Total 650 Balance 650 Lab Results - Last 24 Hours: Laboratory Results - last 24 hr 07/26/18 07/26/18 07/26/18 Range/Units 04:43 09:11 12:38 POC Glucose 86 147 H 104 (70-105) mg/dL 07/26/18 Range/Units 17:57 POC Glucose 99 (70-105) mg/dL Med Orders - Current: Current Medications Diphenhydramine HCl (Benadryl) 25 mg IVPUSH Q6H PRN PRN Reason: Itching or Nausea Emollient Ointment (Lansinoh Hpa) 0 gm TOP ASDIRECTED PRN PRN Reason: Sore Nipples Ibuprofen (Motrin) 600 mg PO Q6H PRN PRN Reason: mild pain or fever Last Admin: 07/26/18 22:50 Dose: 600 mg Insulin Human Lispro (Humalog) 2 - 10 unit SUBCUT TID [facility]; Protocol Last Admin: 07/26/18 15:06 Dose: Not Given Magnesium Hydroxide (Milk Of Magnesia) 30 ml PO BEDTIME PRN PRN Reason: Constipation Last Admin: 07/26/18 22:13 Dose: 30 ml Naloxone HCl (Narcan) 0.1 mg IVPUSH SEECOMMENT PRN PRN Reason: Respiratory Depression Oxycodone/Acetaminophen (Percocet 325-5 Mg) 2 tab PO Q4H PRN PRN Reason: Pain Last Admin: 07/27/18 06:14 Dose: 2 tab Discontinued Medications Cefazolin Sodium (Ancef) Confirm Administered Dose 2 gm .ROUTE .[facility] ONE Stop: 07/25/18 07:15 Cefazolin Sodium/Dextrose (Ancef) Confirm Administered Dose 2 gm IV .[facility] ONE Stop: 07/25/18 06:23 Last Admin: 07/25/18 11:08 Dose: Not Given Citric Acid/Sodium Citrate (Bicitra Solution) 30 ml PO ONETIME ONE Stop: 07/25/18 06:01 Last Admin: 07/25/18 07:14 Dose: 30 ml Diphenhydramine HCl (Benadryl) 12.5 mg IVPUSH Q6H PRN PRN Reason: pruritis Stop: 07/25/18 12:00 Ephedrine Sulfate (Ephedrine Sulfate) 5 mg IVPUSH SEECOMMENT PRN PRN Reason: Other Cefazolin Sodium/Dextrose 2 gm (/ Premix) 50 mls @ 100 mls/hr IV ONETIME ONE Stop: 07/25/18 07:29 Last Admin: 07/25/18 07:28 Dose: 100 mls/hr Lactated Ringer's (Ringers, Lactated) 1,000 mls @ 125 mls/hr IV ASDIRECTED [facility] Last Admin: 07/25/18 07:13 Dose: 125 mls/hr Oxytocin/Lactated Ringer's (Pitocin In Lr 10 Units/1,000 Ml) 10 unit in 1,000 mls @ 100 mls/hr IV ASDIRECTED [facility] Lactated Ringer's (Ringers, Lactated) Confirm Administered Dose 1,000 mls @ as directed .ROUTE .[facility] ONE Stop: 07/25/18 08:27 Lactated Ringer's (Ringers, Lactated) Confirm Administered Dose 1,000 mls @ as directed .ROUTE .[facility] ONE Stop: 07/25/18 08:27 Dextrose/Lactated Ringer's (Dextrose 5%-Lactated Ringers) 1,000 mls @ 125 mls/ hr IV ASDIRECTED [facility] Stop: 07/25/18 17:40 Last Admin: 07/25/18 13:07 Dose: 125 mls/hr Insulin Glargine (Lantus) 10 unit SUBCUT NOW STA Stop: 07/26/18 21:43 Last Admin: 07/26/18 22:08 Dose: 10 units Insulin Human NPH (Humulin N) 10 unit SUBCUT BEDTIME [facility] Last Admin: 07/25/18 21:45 Dose: 10 units Ketorolac Tromethamine (Toradol) Confirm Administered Dose 30 mg .ROUTE .STK- MED ONE Stop: 07/25/18 08:18 Ketorolac Tromethamine (Toradol) 30 mg IVPUSH Q6H [facility] Stop: 07/26/18 03:31 Last Admin: 07/26/18 03:44 Dose: 30 mg Metoclopramide HCl (Reglan) 10 mg IVPUSH ONETIME ONE Stop: 07/25/18 06:01 Last Admin: 07/25/18 07:14 Dose: 10 mg Misoprostol (Cytotec) Confirm Administered Dose 600 mcg .ROUTE .STK-MED ONE Stop: 07/25/18 07:53 Morphine Sulfate (Morphine) Confirm Administered Dose 10 mg .ROUTE .STK-MED ONE Stop: 07/25/18 07:15 Morphine Sulfate (Duramorph Pf) Confirm Administered Dose 1 mg .ROUTE .STK-MED ONE Stop: 07/25/18 07:28 Ondansetron HCl (Zofran) Confirm Administered Dose 4 mg .ROUTE .STK-MED ONE Stop: 07/25/18 07:17 Ondansetron HCl (Zofran) 4 mg IVPUSH ONETIME PRN PRN Reason: Nausea/Vomiting Stop: 07/25/18 12:00 Oxytocin (Pitocin) Confirm Administered Dose 20 unit .ROUTE .STK-MED ONE Stop: 07/25/18 07:16 Phenylephrine HCl (Phenylephrine In Ns 100 Mcg/Ml) Confirm Administered Dose 1 mg .ROUTE .STK-MED ONE Stop: 07/25/18 08:40 Phenylephrine HCl (Phenylephrine In Ns 100 Mcg/Ml) Confirm Administered Dose 1 mg .ROUTE .STK-MED ONE Stop: 07/25/18 08:40 Sodium Chloride (Saline Flush) 10 ml FLUSH ASDIRECTED PRN PRN Reason: Keep Vein Open - Infant Interaction Infant Disposition, : [place] in Room with Family Infant Interaction: Holding Feeding: Bottle Fed Support Person: - Recovery Exam Fundal Tone: Firm Fundal Level: 1 Fingerbreadths Below Umbilicus Fundal Placement: Midline Lochia Amount: Small Lochia Color: Rubra/Red Perineum Description: Intact, Minimal Bruising/Swelling Episiotomy/Laceration: None Bladder Status: Voiding Urinary Elimination: Voided - Exam General: Alert, Oriented, Cooperative Lungs: Clear to Auscultation, Normal Respiratory Effort Cardiovascular: Regular Rate, Regular Rhythm GI/Abdominal Exam: Soft, Non-Tender Extremities: Normal Inspection Skin: Warm, Dry, Intact Wound/Incisions: Healing Well, No Drainage - Problem List & Annotations (1) 38 weeks gestation of SNOMED Code(s): 52536948 Code(s): Z3A.38 - 38 WEEKS GESTATION OF Status: Acute Current Visit: Yes (2) Type 2 diabetes mellitus SNOMED Code(s): 87428438 Code(s): E11.9 - TYPE 2 DIABETES MELLITUS WITHOUT COMPLICATIONS Status: Acute Current Visit: Yes Qualifiers: Diabetes 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 (3) Polyhydramnios SNOMED Code(s): 98239886 Code(s): O40.9XX0 - POLYHYDRAMNIOS, UNSP TRIMESTER, NOT APPLICABLE OR UNSP Status: Acute Current Visit: Yes Qualifiers: Fetus number: single or unspecified fetus Trimester: third trimester Qualified Code(s): O40.3XX0 - Polyhydramnios, third trimester, not applicable or unspecified (4) S/P repeat low transverse SNOMED Code(s): 593882809, 99118036, 438736709, 891855925, 797568609 Code(s): Z98.891 - HISTORY OF UTERINE SCAR FROM PREVIOUS SURGERY Status: Acute Current Visit: Yes - Problem List Review Problem List Initiated/Reviewed/Updated: Yes - My Orders Last 24 Hours: My Active Orders 07/26/18 09:30 Ibuprofen [Motrin] 600 mg PO Q6H PRN 07/26/18 13:54 Acetaminophen/oxyCODONE [Percocet 325-5 MG] 2 tab PO Q4H PRN 07/26/18 20:17 Magnesium Hydroxide [Milk of Magnesia] 30 ml PO BEDTIME PRN - Assessment Assessment:: 33 y/o G4 now P4004 POD#2 from RLTCS and bilateral salpingectomy - Plan Plan:: S/p RLTCS * Routine cares * Bottle feeding * On NPH of 10 nightly. Has SSI with meals. Plans to transition to oral medications after discharge. * Discharge home today per patient preference
--- NOTE | 2018-07-27 08:06 | PCM.DCSUM1 ---
Discharge Summary - Discharge Data Discharge Date: 07/27/18 Discharge Disposition: Home, Self-Care 01 Condition: Good - Discharge Diagnosis/Problem(s) (1) 38 weeks gestation of SNOMED Code(s): 41070265 ICD Code: Z3A.38 - 38 WEEKS GESTATION OF Status: Acute Current Visit: Yes (2) Type 2 diabetes mellitus SNOMED Code(s): 68291370 ICD Code: E11.9 - TYPE 2 DIABETES MELLITUS WITHOUT COMPLICATIONS Status: Acute Current Visit: Yes Qualifiers: Diabetes mellitus administrator insulin use: unspecified jail insulin use status (3) Polyhydramnios SNOMED Code(s): 34109572 ICD Code: O40.9XX0 - POLYHYDRAMNIOS, UNSP TRIMESTER, NOT APPLICABLE OR UNSP Status: Acute Current Visit: Yes Qualifiers: Fetus number: single or unspecified fetus Trimester: third trimester Qualified Code(s): O40.3XX0 - Polyhydramnios, third trimester, not applicable or unspecified (4) S/P repeat low transverse SNOMED Code(s): 112443072, 82331382, [id number], [id number], [id number] ICD Code: Z98.891 - HISTORY OF UTERINE SCAR FROM PREVIOUS SURGERY Status: Acute Current Visit: Yes - Patient Summary/Data Operative Procedure(s) Performed: Repeat low transverse . Bilateral salpingectomy Complications: None Consults: None Recommended Follow-up Testing/Procedures: Follow up in 1-2 weeks for post op check Hospital Course: 33 y/o presented at 38 3/7 wks for planned RLTCS and bilateral salpingectomy. timed for 38 3/7 wks due to preexisting Type 2 DM and new findings of polyhydramnios. Surgery was uncomplicated. See operative note for full details. she did well and was discharged home on POD#2 - Patient Instructions Diet: Regular Diet as Tolerated Activity: No Lifting Over 10 Pounds Activity, Other: Pelvic rest for 6 weeks Driving: Do Not Drive (While taking narcotics ) Showering/Bathing: May Shower, No Tub Bathing/Swimming Wound/Incision Care: Keep Operative Site/Wound Site Clean and Dry Notify Provider of: Fever, Increased Pain, Swelling and Redness, Drainage, Nausea and/or Vomiting - Discharge Plan *PRESCRIPTION DRUG MONITORING PROGRAM REVIEWED*: Yes *COPY OF PRESCRIPTION DRUG MONITORING REPORT IN PATIENT [place]: Not Applicable ( No Rx's in last year) Prescriptions/Med Rec: Acetaminophen/oxyCODONE [Percocet 325-5 MG] 2 tab PO Q4H PRN #20 tablet PRN Reason: Pain Insulin Detemir [Levemir Flextouch] 10 unit SQ DAILY #1 ml Home Medications: Home Meds Pnv No.122/Iron/Folic Acid [ Multi Tablet] 1 each PO DAILY 07/24/18 [ History] Acetaminophen/oxyCODONE [Percocet 325-5 MG] 2 tab PO Q4H PRN #20 tablet [Rx] Ibuprofen [Motrin] 600 mg PO Q6H PRN tablet 07/26/18 [Rx] Insulin Detemir [Levemir Flextouch] 10 unit SQ DAILY #1 ml 07/27/18 [Rx] Patient Handouts: Delivery, Care After Referrals: Cindi Weinberg MD [Physician] - (2 weeks for incision check) - Discharge Summary/Plan Comment DC Time >30 min.: No - Patient Data Vitals - Most Recent: Last Vital Signs Temp 37.2 C 07/27/18 03:00 Pulse 78 07/27/18 03:00 Resp 16 07/27/18 03:00 BP 125/78 07/27/18 03:00 Pulse Ox 97 07/27/18 03:00 Weight - Most Recent: 94.302 kg I&O - Last 24 hours: Intake & Output 07/26/18 07/27/18 07/27/18 22:59 06:59 14:59 Intake Total 650 Balance 650 Lab Results - Last 24 hrs: Laboratory Results - last 24 hr 07/26/18 07/26/18 07/26/18 Range/Units 04:43 09:11 12:38 POC Glucose 86 147 H 104 (70-105) mg/dL 07/26/18 Range/Units 17:57 POC Glucose 99 (70-105) mg/dL Med Orders - Current: Current Medications Diphenhydramine HCl (Benadryl) 25 mg IVPUSH Q6H PRN PRN Reason: Itching or Nausea Emollient Ointment (Lansinoh Hpa) 0 gm TOP ASDIRECTED PRN PRN Reason: Sore Nipples Ibuprofen (Motrin) 600 mg PO Q6H PRN PRN Reason: mild pain or fever Last Admin: 07/26/18 22:50 Dose: 600 mg Insulin Human Lispro (Humalog) 2 - 10 unit SUBCUT TID [facility]; Protocol Last Admin: 07/26/18 15:06 Dose: Not Given Magnesium Hydroxide (Milk Of Magnesia) 30 ml PO BEDTIME PRN PRN Reason: Constipation Last Admin: 07/26/18 22:13 Dose: 30 ml Naloxone HCl (Narcan) 0.1 mg IVPUSH SEECOMMENT PRN PRN Reason: Respiratory Depression Oxycodone/Acetaminophen (Percocet 325-5 Mg) 2 tab PO Q4H PRN PRN Reason: Pain Last Admin: 07/27/18 06:14 Dose: 2 tab Discontinued Medications Cefazolin Sodium (Ancef) Confirm Administered Dose 2 gm .ROUTE .STK-MED ONE Stop: 07/25/18 07:15 Cefazolin Sodium/Dextrose (Ancef) Confirm Administered Dose 2 gm IV .STK-MED ONE Stop: 07/25/18 06:23 Last Admin: 07/25/18 11:08 Dose: Not Given Citric Acid/Sodium Citrate (Bicitra Solution) 30 ml PO ONETIME ONE Stop: 07/25/18 06:01 Last Admin: 07/25/18 07:14 Dose: 30 ml Diphenhydramine HCl (Benadryl) 12.5 mg IVPUSH Q6H PRN PRN Reason: pruritis Stop: 07/25/18 12:00 Ephedrine Sulfate (Ephedrine Sulfate) 5 mg IVPUSH SEECOMMENT PRN PRN Reason: Other Cefazolin Sodium/Dextrose 2 gm (/ Premix) 50 mls @ 100 mls/hr IV ONETIME ONE Stop: 07/25/18 07:29 Last Admin: 07/25/18 07:28 Dose: 100 mls/hr Lactated Ringer's (Ringers, Lactated) 1,000 mls @ 125 mls/hr IV ASDIRECTED [facility] Last Admin: 07/25/18 07:13 Dose: 125 mls/hr Oxytocin/Lactated Ringer's (Pitocin In Lr 10 Units/1,000 Ml) 10 unit in 1,000 mls @ 100 mls/hr IV ASDIRECTED [facility] Lactated Ringer's (Ringers, Lactated) Confirm Administered Dose 1,000 mls @ as directed .ROUTE .[facility] ONE Stop: 07/25/18 08:27 Lactated Ringer's (Ringers, Lactated) Confirm Administered Dose 1,000 mls @ as directed .ROUTE .[facility] ONE Stop: 07/25/18 08:27 Dextrose/Lactated Ringer's (Dextrose 5%-Lactated Ringers) 1,000 mls @ 125 mls/ hr IV ASDIRECTED [facility] Stop: 07/25/18 17:40 Last Admin: 07/25/18 13:07 Dose: 125 mls/hr Insulin Glargine (Lantus) 10 unit SUBCUT NOW STA Stop: 07/26/18 21:43 Last Admin: 07/26/18 22:08 Dose: 10 units Insulin Human NPH (Humulin N) 10 unit SUBCUT BEDTIME [facility] Last Admin: 07/25/18 21:45 Dose: 10 units Ketorolac Tromethamine (Toradol) Confirm Administered Dose 30 mg .ROUTE .ST- [facility] ONE Stop: 07/25/18 08:18 Ketorolac Tromethamine (Toradol) 30 mg IVPUSH Q6H [facility] Stop: 07/26/18 03:31 Last Admin: 07/26/18 03:44 Dose: 30 mg Metoclopramide HCl (Reglan) 10 mg IVPUSH ONETIME ONE Stop: 07/25/18 06:01 Last Admin: 07/25/18 07:14 Dose: 10 mg Misoprostol (Cytotec) Confirm Administered Dose 600 mcg .ROUTE .[facility] ONE Stop: 07/25/18 07:53 Morphine Sulfate (Morphine) Confirm Administered Dose 10 mg .ROUTE .ST-[facility] ONE Stop: 07/25/18 07:15 Morphine Sulfate (Duramorph Pf) Confirm Administered Dose 1 mg .ROUTE .[facility] ONE Stop: 07/25/18 07:28 Ondansetron HCl (Zofran) Confirm Administered Dose 4 mg .ROUTE .ST-MED ONE Stop: 07/25/18 07:17 Ondansetron HCl (Zofran) 4 mg IVPUSH ONETIME PRN PRN Reason: Nausea/Vomiting Stop: 07/25/18 12:00 Oxytocin (Pitocin) Confirm Administered Dose 20 unit .ROUTE .STK-MED ONE Stop: 07/25/18 07:16 Phenylephrine HCl (Phenylephrine In Ns 100 Mcg/Ml) Confirm Administered Dose 1 mg .ROUTE .STK-MED ONE Stop: 07/25/18 08:40 Phenylephrine HCl (Phenylephrine In Ns 100 Mcg/Ml) Confirm Administered Dose 1 mg .ROUTE .STK-MED ONE Stop: 07/25/18 08:40 Sodium Chloride (Saline Flush) 10 ml FLUSH ASDIRECTED PRN PRN Reason: Keep Vein Open
[2018-07-27] MEDS: Insulin Lispro 100 Unit/ML 3 ML KwikPen SUBCUT SCH (08:20)
[2018-07-27 10:23] VITALS: BP 119/78
== END 2018-07-27 11:25 | disposition home or self-care (01) | DRG 540 ==
LOC: JD.OB 05:36
PROVIDERS: ADMIT Obstetrics & Gynecology; ATTEND Obstetrics & Gynecology
PROC: 10D00Z1 Extraction of Products of Conception, Low, Open Approach (ICD-10-PCS; principal; 2018-07-25)
PROC: 6A550ZT Pheresis of Cord Blood Stem Cells, Single (ICD-10-PCS; principal; 2018-07-25)
PROC: 0UB70ZZ Excision of Bilateral Fallopian Tubes, Open Approach (ICD-10-PCS; principal; 2018-07-25)
DX: O34.211 Maternal care for low transverse scar from previous cesarean delivery (principal); O24.12 Pre-existing type 2 diabetes mellitus, in childbirth; E11.9 Type 2 diabetes mellitus without complications; O40.3XX0 Polyhydramnios, third trimester, not applicable or unspecified; N85.8 Other specified noninflammatory disorders of uterus; Z3A.38 38 weeks gestation of pregnancy; Z37.0 Single live birth; Z79.4 Long term (current) use of insulin; Z30.2 Encounter for sterilization
CPT/HCPCS: 01961; 36415; 59025; 59409; 80306; 81003; 82962; 85025; 85027; 86592; 86850; 86900; 86901; A9270-GY; J0690; J1815; J1885; J2270; J2274; J2370; J2405; J2590; J2765; J7042; J7120